=== PATIENT | female | born 1955 | race African-American/Black ===

== ENCOUNTER 2018-12-12 14:38 | Emergency (ER) | payer MEDICAID ==
[~2018-12-12] VITALS: Ht 172.7 cm; Wt 85.0 kg
--- NOTE | 2018-12-12 14:57 | NUR ---
Assumed care of patient. C/O LLE edema worse today then normal. Patient normally would elevate legs, but is unable to d/t pain behind the knee when elevated. Hx CVA with severe left-sided deficits. Daughter at bedside. Will continue to monitor.
--- NOTE | 2018-12-12 16:03 | NUR ---
Patient in [place] at this time.
[2018-12-12 16:41] VITALS: BP 162/85
--- NOTE | 2018-12-12 16:55 | NUR ---
Patient/Caregiver given discharge instructions and they have confirmed that they understand the instructions. Patient taken out in WC.
== END 2018-12-12 16:56 | disposition home or self-care (01) ==
LOC: ED 16:45
DX: R60.0 Localized edema (principal); I10 Essential (primary) hypertension; E11.9 Type 2 diabetes mellitus without complications; E78.00 Pure hypercholesterolemia, unspecified
CPT/HCPCS: 99284